=== PATIENT | female | born 1990 ===

== ENCOUNTER 2021-11-10 16:05 | Emergency (ER) ==
[2021-11-10] MEDS ORDERED: Ketorolac Tromethamine 30 MG/ML VIAL ONE (16:53)
== END 2021-11-10 17:24 | disposition home or self-care (01) ==
LOC: ERS 16:05
DX: S20.211A Contusion of right front wall of thorax, initial encounter (principal); X58.XXXA Exposure to other specified factors, initial encounter
CPT/HCPCS: 71045; 96372; J1885